=== PATIENT | male | born 1965 | race Caucasian/White ===

== ENCOUNTER 2017-02-01 13:23 | Emergency (ER) | payer BC ==
[2017-02-01] MEDS ORDERED: SUBLIMAZE 100 MCG/2 ML IV ONE (13:54)
[2017-02-01] MEDS ORDERED: Sodium Chloride 0.9% 1000 ML 1,000 ML IV STA (13:54)
[2017-02-01] MEDS ORDERED: Zofran 4 MG/2 ML VIAL IV ONE (13:54)
--- NOTE | 2017-02-01 14:00 | ERPHSYRPT ---
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 also reports pain to the left groin. states he has been having some pain to the left groin as well. Triage Nursing Assessment: pt is aox3, pupils perrl, resps are easy and nonlabored, radial pulses strong and equal, abd is soft, bowel sounds present and normoactivex4. pain to the LLQ with radiation to flank and back. urinary frequency and hesitancy. 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 also reports pain to the left groin. states he has been having some pain to the left groin as well. c/o urinary urgency and hesitancy Timing/Duration: today Activities at Onset: none Quality: throbbing Abdominal Pain Onset Location: LLQ Pain Radiation: flank, other (left groin) Severity of Pain-Max: severe Severity of Pain-Current: severe Modifying Factors: Improves With: nothing Allergies/Adverse Reactions: No Known Drug Allergies Allergy (Verified 02/01/17 13:38) Home Medications: Aspir 81 81 mg PO DAILY 02/13/12 [History] Glucophage DAILY 02/13/12 [History] Lisinopril DAILY 02/13/12 [History] Hx Tetanus, Diphtheria Vaccination/Date Given: Yes Hx Influenza Vaccination/Date Given: No Hx Pneumococcal Vaccination/Date Given: No Immunizations Up to Date: Yes - Review of Systems Constitutional: No Fever, No Chills Eyes: No Symptoms Ears, Nose, & Throat: No Symptoms Respiratory: No Cough, No Dyspnea Cardiac: No Chest Pain, No Edema, No Syncope Abdominal/Gastrointestinal: Abdominal Pain, No Nausea, No Vomiting, No Diarrhea Genitourinary Symptoms: Frequency, Hesitancy, Urgency, Flank Pain, No Dysuria, No Testicle Pain Musculoskeletal: No Back Pain, No Neck Pain Skin: No Rash Neurological: No Dizziness, No Focal Weakness, No Sensory Changes Psychological: No Symptoms Endocrine: No Symptoms All Other Systems: Reviewed and Negative - Past Medical History Pertinent Past Medical History: Yes Neurological History: No Pertinent History Cardiac History: Hypertension Respiratory History: No Pertinent History Endocrine Medical History: No Pertinent History, Diabetes Type II Musculoskeletal History: No Pertinent History Other Medical History: TYPE II DM (NIIDDM) - Past Surgical History Past Surgical History: Yes Gastrointestinal: Cholecystectomy - Social History Smoking Status: Never smoker Exposure to second hand smoke: No Drug Use: none Patient Lives Alone: No - Nursing Vital Signs Nursing Vital Signs: Initial Vital Signs Temperature 98.3 F 02/01/17 13:28 Pulse Rate 78 02/01/17 13:28 Respiratory Rate 18 02/01/17 13:28 Blood Pressure 158/114 02/01/17 13:28 O2 Sat by Pulse Oximetry 98 02/01/17 13:28 Pain Scale Pain Intensity 2 - Physical Exam General Appearance: no apparent distress, alert Eye Exam: PERRL/EOMI, eyes nml inspection Ears, Nose, Throat Exam: normal ENT inspection, pharynx normal, moist mucous membranes Neck Exam: normal inspection, non-tender, supple, full range of motion Respiratory Exam: normal breath sounds, lungs clear, No respiratory distress Cardiovascular Exam: regular rate/rhythm, normal heart sounds Gastrointestinal/Abdomen Exam: soft, normal bowel sounds, No tenderness, No distention, No mass, No guarding, No rebound Back Exam: normal inspection, normal range of motion, No CVA tenderness, No vertebral tenderness Extremity Exam: normal inspection, normal range of motion, pelvis stable Neurologic Exam: alert, oriented x 3, cooperative, normal mood/affect, nml cerebellar function, sensation nml, No motor deficits Skin Exam: normal color, warm, dry SpO2: 98 Oxygen Delivery: Room Air - Course Nursing assessment & vital signs reviewed: Yes - Radiology Ultrasound Exam Abdomen Ultrasound: Other (left ureteric pelvic stone, passed in to bladder while doing US. mild left hydronephrosis) Ordered Tests: Active Orders 24 hr Category Date Time Status UPPER ABDOMEN [US] Stat Exams 02/01/17 13:56 Ordered AMYLASE Stat Lab 02/01/17 13:54 Completed CBC W DIFF Stat Lab 02/01/17 13:54 Completed CMP Stat Lab 02/01/17 13:54 Completed LIPASE Stat Lab 02/01/17 13:54 Completed Lactic Acid Stat Lab 02/01/17 Ordered Medication Summary Discontinued Medications Generic Name Dose Route Start Last Admin Trade Name Freq PRN Reason Stop Dose Admin Fentanyl Citrate 50 mcg 02/01/17 13:54 02/01/17 14:08 Sublimaze 100 Mcg/2 Ml IV 02/01/17 13:55 50 mcg STAT ONE Administration Fentanyl Citrate Confirm 02/01/17 14:04 Sublimaze 100 Mcg/2 Ml Administered 02/01/17 14:05 Dose 100 mcg .ROUTE .STK-MED ONE Sodium Chloride 1,000 mls @ 999 mls/hr 02/01/17 13:54 02/01/17 14:08 Sodium Chloride 0.9% 1000 Ml IV 02/01/17 14:54 999 mls/hr .Q1H1M STA Administration Sodium Chloride Confirm 02/01/17 14:04 Sodium Chloride 0.9% 1000 Ml Administered 02/01/17 14:05 Dose 1,000 mls @ ud .ROUTE .STK-MED ONE Ondansetron HCl 4 mg 02/01/17 13:54 02/01/17 14:09 Zofran 4 Mg/2 Ml Vial IV 02/01/17 13:55 4 mg STAT ONE Administration Ondansetron HCl Confirm 02/01/17 14:03 Zofran 4 Mg/2 Ml Vial Administered 02/01/17 14:04 Dose 4 mg .ROUTE .STK-MED ONE Lab/Rad Data: Laboratory Result Diagrams 02/01/17 13:54 02/01/17 13:54 Laboratory Results 02/01/17 02/01/17 Range/Units 13:54 13:54 WBC 10.2 (4.0-10.5) K/mm3 RBC 5.66 H (4.1-5.6) M/mm3 Hgb 16.0 (12.5-18.0) gm/dl Hct 45.6 (42-50) % MCV 80.6 (78-100) fl MCH 28.2 (26-32) pg MCHC 35.1 (32-36) g/dl RDW 13.4 (11.5-14.0) % Plt Count 243 (150-450) K/mm3 MPV 10.4 H (6-9.5) fl Gran % 59.2 (36.0-66.0) % Lymphocytes % 28.2 (24.0-44.0) % Monocytes % 9.2 (0.0-12.0) % Eosinophils % 3.1 (0.00-5.0) % Basophils % 0.3 (0.0-0.4) % Basophils # 0.03 (0-0.4) Sodium 142 (136-145) mEq/L Potassium 4.0 (3.5-5.1) mEq/L Chloride 106 (98-107) mEq/L Carbon Dioxide 26.5 (21-32) mEq/L Anion Gap 13.5 (5-15) MEQ/L BUN 15 (9-20) mg/dL Creatinine 0.92 (0.55-1.30) mg/dl Estimated GFR > 60 ML/MIN Glucose 223 H (70-110) MG/DL Calcium 9.0 (8.5-10.1) mg/dL Total Bilirubin 1.00 (0.2-1.0) mg/dL AST 25 (15-37) U/L ALT 52 (12-78) U/L Alkaline Phosphatase 58 (46-116) U/L Serum Total Protein 7.2 (6.4-8.2) gm/dL Albumin 3.7 (3.4-5.0) g/dL Amylase 37 (25-115) U/L Lipase 79 (73-393) U/L - Progress Progress: improved, pain not gone completely Counseled pt/family regarding: lab results, diagnosis, need for follow-up, rad results - Departure Time of Disposition: 15:00 Departure Disposition: Home Clinical Impression: Renal colic on left side Type 2 diabetes mellitus Qualifiers: Diabetes mellitus complication status: without complication Diabetes mellitus care home insulin use: without medical office assistant instructor use Qualified Code(s): E11.9 - Type 2 diabetes mellitus without complications Condition: Stable Critical Care Time: Yes Critical Care Time(excluding separately billable procedures): 30-74 minutes Referrals: AUSTIN GRIFFITH [Primary Care Provider] - Instructions: Kidney Stones, Abdominal Pain-Adult Additional Instructions: ABDOMINAL PAIN 1. There are several different causes for abdominal pain, some of which may not be able to be identified on initial examination. 2. The important thing to remember is that bodily functions can change in a short period of time. If you notice any of the following symptoms, return to the emergency department or consult your doctor immediately: A. Worsening pain or no improvement in the next 12 hours. B. Increasing, severe abdominal pain C. Blood in stool D. Black stools E. Persistent vomiting F. Fever or chills or other symptoms Prescriptions: Ciprofloxacin [Cipro 500 MG] 500 mg PO BIDAC #20 tablet Cyclobenzaprine HCl 10 mg [Flexeril 10 MG] 10 mg PO TID #30 tablet
[2017-02-01] MEDS ORDERED: Zofran 4 MG/2 ML VIAL ONE (14:03)
[2017-02-01] MEDS ORDERED: Sodium Chloride 0.9% 1000 ML 1,000 ML ONE (14:04)
[2017-02-01] MEDS ORDERED: SUBLIMAZE 100 MCG/2 ML ONE (14:04)
[2017-02-01 14:05] LABS: BASOPHIL % 0.3 % (0.0-0.4); Eosinophil % 3.1 % (0.00-5.0); Granulocytes % 59.2 % (36.0-66.0); Lymphocytes % 28.2 % (24.0-44.0); Mean Cell Volume 80.6 fl (78-100); Mean Platelet Volume 10.4 fl (6-9.5); Monocytes % 9.2 % (0.0-12.0); Platelet Count 243 K/mm3 (150-450); Red Blood Count 5.66 M/mm3 (4.1-5.6); Red Cell Distribution Width 13.4 % (11.5-14.0); White Blood Count 10.2 K/mm3 (4.0-10.5)
[2017-02-01 14:06] LABS: Mean Corpuscular Hemoglobin 28.2 pg (26-32)
[2017-02-01 14:22] LABS: ALBUMIN 3.7 g/dL (3.4-5.0); ALKALINE PHOSPHATASE 58 U/L (46-116); ANION GAP 13.5 MEQ/L (5-15); BLOOD UREA NITROGEN 15 mg/dL (9-20); CHLORIDE 106 mEq/L (98-107); Carbon Dioxide 26.5 mEq/L (21-32); Glucose 223 MG/DL (70-110); LIPASE 79 U/L (73-393); SGOT/AST 25 U/L (15-37); SGPT/ALT 52 U/L (12-78); SODIUM 142 mEq/L (136-145); Total Protein 7.2 gm/dL (6.4-8.2)
[2017-02-01 14:39] VITALS: O2SAT 98
[2017-02-01 15:14] VITALS: BP 145/87; PULSE 91
--- NOTE | 2017-02-01 20:39 | XRAY ---
Indication: Left lower quadrant pain. Two-dimensional renal sonogram performed. Comparison: Gallbladder sonogram November 04, 2007. Both kidneys normal in reniform shape. Right kidney measures 11.6 x 5.9 x 5.1 cm and the left measures 12.2 x 6.6 x 5.5 cm. Left kidney is mildly hydronephrotic. No renal mass or perinephric fluid bilaterally. Cortical medullary differentiation preserved. Images of the urinary bladder unremarkable. Impression: Left renal hydronephrosis. Rule out distal obstructive uropathy. Negative right renal sonogram. Comment: Preliminary report was given.
== END 2017-02-01 15:15 | disposition home or self-care (01) ==
LOC: ED 13:23
DX: E11.9 Type 2 diabetes mellitus without complications (principal); N23 Unspecified renal colic; R10.32 Left lower quadrant pain; M54.9 Dorsalgia, unspecified; R39.15 Urgency of urination; R39.11 Hesitancy of micturition
CPT/HCPCS: 36000; 36415; 76770; 80053; 82150; 83036; 83690; 85025; 96360; 96374; 96375; 99284; J2405; J3010

== ENCOUNTER 2018-03-06 00:35 | Emergency (ER) | payer BC ==
[2018-03-06] MEDS ORDERED: Hydromorphone 1 mg/ml Ampule IV ONE (01:10)
[2018-03-06] MEDS ORDERED: Sodium Chloride 0.9% 1000 ML 1,000 ML IV STA (01:10)
[2018-03-06] MEDS ORDERED: TORAdol 30 mg Injection IV ONE (01:10)
[2018-03-06] MEDS ORDERED: Zofran 4 MG/2 ML VIAL IV ONE (01:10)
[2018-03-06] MEDS ORDERED: Zofran 4 MG/2 ML VIAL ONE (01:15)
[2018-03-06] MEDS ORDERED: Sodium Chloride 0.9% 1000 ML 1,000 ML ONE (01:15)
[2018-03-06] MEDS ORDERED: TORAdol 30 mg Injection ONE (01:15)
[2018-03-06] MEDS ORDERED: Hydromorphone 1 mg/ml Ampule ONE (01:15)
[2018-03-06 01:18] LABS: BASOPHIL % 0.5 % (0.0-0.4); Basophil (Absolute #) 0.05 (0-0.4); Eosinophil % 3.1 % (0.00-5.0); Granulocyte Absolute (ANC) 5.37 (1.4-6.9); Granulocytes % 55.5 % (36.0-66.0); Hematocrit 46.5 % (42-50); Hemoglobin 15.9 gm/dl (12.5-18.0); Lymphocyte (Absolute #) 2.85 (1.0-4.6); Lymphocytes % 29.5 % (24.0-44.0); Mean Cell Volume 82.9 fl (78-100); Mean Corpuscular Hemoglobin 28.3 pg (26-32); Mean Corpuscular Hgb Concent. 34.2 g/dl (32-36); Mean Platelet Volume 10.3 fl (6-9.5); Monocytes % 11.4 % (0.0-12.0); Platelet Count 228 K/mm3 (150-450); Red Blood Count 5.61 M/mm3 (4.1-5.6); Red Cell Distribution Width 13.4 % (11.5-14.0); White Blood Count 9.7 K/mm3 (4.0-10.5)
--- NOTE | 2018-03-06 01:18 | ERPHSYRPT ---
- History of Present Illness Time Seen by Provider: 03/06/18 00:55 Historian: patient Exam Limitations: clinical condition Patient Subjective Stated Complaint: pt is alert and oriented. pt is ambulatory. pt comes in with c/o left sided abdomenal and flank pain. pt states that he had a "kidney stone in his right side over a year ago" and that the pain "feels like that except on the left." pt denies n/v/d. pt states hes had mild burning during urination. denies blood in his urine or difficulty urinating. Triage Nursing Assessment: see above Physician History: PATIENT WITH A HISTORY OF LEFT FLANK PAINS INTERMITTENT X 2 DAYS, RADIATING AROUND TO RIGHT LOWER ABDOMEN. HAS ASSOCIATED URGENCY OF URINATION. DENIES FREQUENCY, DYSURIA, HEMATURIA, NAUSEA, EMESIS OR DIARRHEA OR FEVER. Timing/Duration: day(s) Activities at Onset: none Quality: sharpness, stabbing Abdominal Pain Onset Location: LLQ, flank Pain Radiation: LLQ Severity of Pain-Max: severe Severity of Pain-Current: moderate Modifying Factors: Improves With: nothing Associated Symptoms: other (URGENCY ) Previous symptoms: same symptoms as today Allergies/Adverse Reactions: No Known Drug Allergies Allergy (Verified 02/01/17 13:38) Home Medications: Aspir 81 81 mg PO DAILY 02/13/12 [History] Lisinopril 20 mg [Zestril 20 MG] 1 tab PO BID 03/06/18 [History] Metformin HCl 500 mg [Glucophage 500 MG] 1,000 mg PO BIDWM 03/06/18 [ History] Naproxen Sodium 220 mg [Aleve 220 MG] 440 mg PO BID 03/06/18 [History] hydroCHLOROthiazide [Hydrochlorothiazide] 12.5 mg PO DAILY 03/06/18 [History] Hx Tetanus, Diphtheria Vaccination/Date Given: Yes Hx Influenza Vaccination/Date Given: No Hx Pneumococcal Vaccination/Date Given: No Immunizations Up to Date: Yes - Review of Systems Constitutional: No Fever, No Chills Eyes: No Symptoms Ears, Nose, & Throat: No Symptoms Respiratory: No Symptoms, No Cough, No Dyspnea Cardiac: No Symptoms, No Chest Pain, No Edema, No Syncope Abdominal/Gastrointestinal: Abdominal Pain, No Nausea, No Vomiting, No Diarrhea Genitourinary Symptoms: Urgency, Flank Pain, No Dysuria Musculoskeletal: No Back Pain, No Neck Pain Skin: No Rash Neurological: No Dizziness, No Focal Weakness, No Sensory Changes Psychological: No Symptoms Endocrine: No Symptoms All Other Systems: Reviewed and Negative - Past Medical History Pertinent Past Medical History: Yes Neurological History: No Pertinent History ENT History: No Pertinent History Cardiac History: Hypertension Respiratory History: No Pertinent History Endocrine Medical History: No Pertinent History, Diabetes Type II Musculoskeletal History: No Pertinent History GI Medical History: No Pertinent History History: Other Male Reproductive Disorders: No Pertinent History Other Medical History: Kidney stone, TYPE II DM (NIIDDM) - Past Surgical History Past Surgical History: Yes Neuro Surgical History: No Pertinent History Cardiac: No Pertinent History Respiratory: No Pertinent History Gastrointestinal: Cholecystectomy Genitourinary: No Pertinent History Musculoskeletal: No Pertinent History Male Surgical History: No Pertinent History - Social History Smoking Status: Never smoker Exposure to second hand smoke: No Drug Use: none Patient Lives Alone: No - Nursing Vital Signs Nursing Vital Signs: Initial Vital Signs Temperature 97.6 F 03/06/18 00:37 Pulse Rate 74 03/06/18 00:37 Respiratory Rate 20 03/06/18 00:37 Blood Pressure 177/107 03/06/18 00:37 O2 Sat by Pulse Oximetry 98 03/06/18 00:37 Pain Scale Pain Intensity 2 - Physical Exam General Appearance: moderate distress, alert Eye Exam: PERRL/EOMI, eyes nml inspection Ears, Nose, Throat Exam: normal ENT inspection, pharynx normal, moist mucous membranes Neck Exam: normal inspection, non-tender, supple, full range of motion Respiratory Exam: normal breath sounds, lungs clear, No respiratory distress Cardiovascular Exam: regular rate/rhythm, normal heart sounds Gastrointestinal/Abdomen Exam: soft, normal bowel sounds, other (LEFT LATERAL ABDOMINAL TENDERNESS. ), No tenderness, No mass Back Exam: normal inspection, normal range of motion, CVA tenderness (LEFT CVA TENDERNESS), No vertebral tenderness Extremity Exam: normal inspection, normal range of motion, pelvis stable Neurologic Exam: alert, oriented x 3, cooperative, normal mood/affect, nml cerebellar function, sensation nml, No motor deficits Skin Exam: normal color, warm, dry SpO2: 98 Oxygen Delivery: Room Air - CT Exams Abdomen/Pelvis CT Interpretation: Tele-radiologist Report (THERE IS A 5MM CALCULUS AT THE LEFT DISTAL URETER CLOSE TO THE URETEROVESICAL JUNCTION CAUSING MILD LEFT HYURETERONEPHROSIS AND PERINEPHRIC STRANDING) Ordered Tests: Active Orders 24 hr Category Date Time Status Clean Catch Urine Specimen STAT Care 03/06/18 01:10 Active IV Insertion STAT Care 03/06/18 01:10 Active ABDOMEN AND PELVIS W/0 CONTRAS [CT] Stat Exams 03/06/18 01:10 Taken AMYLASE Stat Lab 03/06/18 01:00 Completed BMP Stat Lab 03/06/18 01:00 Completed CBC W DIFF Stat Lab 03/06/18 01:00 Completed LIPASE Stat Lab 03/06/18 01:00 Completed UA W/RFX UR CULTURE Stat Lab 03/06/18 01:00 Completed Medication Summary Discontinued Medications Generic Name Dose Route Start Last Admin Trade Name Freq PRN Reason Stop Dose Admin Hydromorphone HCl 1 mg 03/06/18 01:10 03/06/18 01:21 Hydromorphone 1 Mg/Ml Ampule IV 03/06/18 01:11 1 mg STAT ONE Administration Hydromorphone HCl Confirm 03/06/18 01:15 Hydromorphone 1 Mg/Ml Ampule Administered 03/06/18 01:16 Dose 1 mg .ROUTE .STK-MED ONE Sodium Chloride 1,000 mls @ 999 mls/hr 03/06/18 01:10 03/06/18 01:26 Sodium Chloride 0.9% 1000 Ml IV 03/06/18 02:10 999 mls/hr .Q1H1M STA Administration Sodium Chloride Confirm 03/06/18 01:15 Sodium Chloride 0.9% 1000 Ml Administered 03/06/18 01:16 Dose 1,000 mls @ ud .ROUTE .STK-MED ONE Ketorolac Tromethamine 30 mg 03/06/18 01:10 03/06/18 01:24 Toradol 30 Mg Injection IV 03/06/18 01:11 30 mg STAT ONE Administration Ketorolac Tromethamine Confirm 03/06/18 01:15 Toradol 30 Mg Injection Administered 03/06/18 01:16 Dose 30 mg .ROUTE .STK-MED ONE Ondansetron HCl 4 mg 03/06/18 01:10 03/06/18 01:18 Zofran 4 Mg/2 Ml Vial IV 03/06/18 01:11 4 mg STAT ONE Administration Ondansetron HCl Confirm 03/06/18 01:15 Zofran 4 Mg/2 Ml Vial Administered 03/06/18 01:16 Dose 4 mg .ROUTE .STK-MED ONE Lab/Rad Data: Laboratory Result Diagrams 03/06/18 01:00 03/06/18 01:00 Laboratory Results 03/06/18 03/06/18 03/06/18 Range/Units 01:00 01:00 01:00 WBC 9.7 (4.0-10.5) K/mm3 RBC 5.61 H (4.1-5.6) M/mm3 Hgb 15.9 (12.5-18.0) gm/dl Hct 46.5 (42-50) % MCV 82.9 (78-100) fl MCH 28.3 (26-32) pg MCHC 34.2 (32-36) g/dl RDW 13.4 (11.5-14.0) % Plt Count 228 (150-450) K/mm3 MPV 10.3 H (6-9.5) fl Gran % 55.5 (36.0-66.0) % Eos # (Auto) 0.30 (0-0.5) Absolute Lymphs (auto) 2.85 (1.0-4.6) Absolute Monos (auto) 1.10 (0.0-1.3) Lymphocytes % 29.5 (24.0-44.0) % Monocytes % 11.4 (0.0-12.0) % Eosinophils % 3.1 (0.00-5.0) % Basophils % 0.5 (0.0-0.4) % Absolute Granulocytes 5.37 (1.4-6.9) Basophils # 0.05 (0-0.4) Sodium 139 (137-145) mmol/L Potassium 4.3 (3.5-5.1) mmol/L Chloride 103 (98-107) mmol/L Carbon Dioxide 27 (22-30) mmol/L Anion Gap 12.7 (5-15) MEQ/L BUN 20 (9-20) mg/dL Creatinine 0.71 (0.66-1.25) mg/dL Estimated GFR > 60.0 ML/MIN Glucose 236 H (74-106) mg/dL Calcium 9.4 (8.4-10.2) mg/dL Amylase 57 (30-110) U/L Lipase 77 (23-300) U/L Urine Color YELLOW (YELLOW) Urine Appearance CLEAR (CLEAR) Urine pH 6.0 (5-6) Ur Specific Calder 1.020 (1.005-1.025) Urine Protein NEGATIVE (Negative) Urine Ketones NEGATIVE (NEGATIVE) Urine Blood NEGATIVE (0-5) Guerrero/ul Urine Nitrite NEGATIVE (NEGATIVE) Urine Bilirubin NEGATIVE (NEGATIVE) Urine Urobilinogen 2 (0-1) mg/dL Ur Leukocyte Esterase NEGATIVE (NEGATIVE) Urine WBC (Auto) 0-2 (0-5) /HPF Urine RBC (Auto) 6-10 (0-2) /HPF U Epithel Cells (Auto) NONE SEEN (FEW) /HPF Urine Mucus (Auto) SLIGHT (NEGATIVE) /HPF Urine Culture Reflexed NO (NO) Urine Glucose 150 (NEGATIVE) mg/dL - Progress Progress: improved, pain not gone completely Progress Note: 03/06/18 03:09 IV NORMAL SALINE 1 LITER/HR. ZOFRAN 4MG, TORADOL 30MG, DILAUDID 1MG IV Counseled pt/family regarding: diagnosis - Departure Time of Disposition: 04:16 Departure Disposition: Home Clinical Impression: LEFT DISTAL URETER STONE Condition: Stable Critical Care Time: No Referrals: NORY RUVALCABA [Primary Care Provider] - Instructions: Kidney Stones in Adults Additional Instructions: USE A STRAINER TO STRAIN YOUR URINE FOR 4 DAYS. FLOMAX 0.4MG AT BEDTIME FOR 1 WEEK. NORCO 10/325 EVERY 4 HOURS FOR PAIN NEEDED. TORADOL 10MG EVERY 6 HOURS NEEDED FOR PAIN. ZOFRAN 4MG EVERY 6 HOURS NEEDED FOR NAUSEA. CALL UROLOGIST DR ROSS IN 2 DAYS TO SCHEDULE APPOINTMENT. RETURN TO EMERGENCY FOR INCREASING PAIN DISCOMFORT. Prescriptions: Hydrocodone/APAP 10/325 mg [[place] 10/325 MG Tablet] 1 tab PO Q4H PRN PRN # 16 tablet MDD 4 PRN Reason: Pain Ketorolac Tromethamine [Toradol] 10 mg PO Q6H PRN PRN #20 tablet PRN Reason: Pain Ondansetron ODT 4 MG [Zofran Odt 4 mg] 4 mg PO Q6H PRN PRN #10 tab.rapdis PRN Reason: Nausea Tamsulosin HCl 0.4 mg [Flomax 0.4 MG] 0 mg PO DAILY #10 cap
[2018-03-06 01:26] LABS: AMYLASE 57 U/L (30-110); ANION GAP 12.7 MEQ/L (5-15); Appearance CLEAR (CLEAR); BLOOD UREA NITROGEN 20 mg/dL (9-20); Bilirubin NEGATIVE (NEGATIVE); Blood NEGATIVE Ery/ul (0-5); CHLORIDE 103 mmol/L (98-107); Calcium 9.4 mg/dL (8.4-10.2); Carbon Dioxide 27 mmol/L (22-30); Creatinine 1 0.71 mg/dL (0.66-1.25); Glucose 150 mg/dL (NEGATIVE); Glucose 236 mg/dL (74-106); Ketones NEGATIVE (NEGATIVE); LIPASE 77 U/L (23-300); Leukocyte Esterase NEGATIVE (NEGATIVE); Nitrite NEGATIVE (NEGATIVE); Potassium 4.3 mmol/L (3.5-5.1); Protein,Urine Dip NEGATIVE (Negative); SODIUM 139 mmol/L (137-145); Urobilinogen 2 mg/dL (0-1)
[2018-03-06] MEDS ORDERED: Norco 10/325 MG Tablet PO ONE (04:16)
[2018-03-06] MEDS ORDERED: Norco 10/325 MG Tablet ONE (04:19)
[2018-03-06 04:39] VITALS: BP 151/90; PULSE 71; O2SAT 97
--- NOTE | 2018-03-06 08:51 | XRAY ---
Indication: Left flank pain. Multiple contiguous axial images obtained through the abdomen and pelvis without contrast as ordered. Comparison: No Lung bases demonstrates minimal left base fibrosis/scarring. No infiltrate or effusion. Heart is not enlarged. Noncontrasted stomach and bowel loops appear nonobstructed. Normal appendix. Previous cholecystectomy. There is a 5 mm distal left ureteral calculus just proximal to the UVJ. Left ureter is prominent up to 8 mm and there is moderate hydronephrosis with small perinephric fluid/stranding consistent with high-grade obstruction. Additional 12 mm left lower renal calculus and a few nonobstructing punctate right renal calculi. Remaining liver, pancreas, spleen, adrenal glands, kidneys, ureters, and bladder appear unremarkable for noncontrast exam. Minimal aortoiliac calcifications without AAA. Osseous structures intact with mild/moderate multilevel degenerative spondylosis. Small fatty bilateral inguinal hernias. Impression: 1. 5 mm distal left ureteral calculus producing high-grade obstruction as detailed. Additional bilateral renal calculi. 2. Incidental small fatty bilateral inguinal hernias. Comment: Preliminary interpretation was made by [facility]. No discrepancy. CTDI 23.68
== END 2018-03-06 04:39 | disposition home or self-care (01) ==
LOC: ED 00:35
DX: R10.9 Unspecified abdominal pain (principal); R10.32 Left lower quadrant pain; R39.15 Urgency of urination; Z79.899 Other long term (current) drug therapy; E11.9 Type 2 diabetes mellitus without complications
CPT/HCPCS: 36000; 36415; 74176; 80048; 81001; 82150; 83690; 85025; 96360; 96374; 96375; 99284; J1170; J1885; J2405; A9270-GY

== ENCOUNTER 2023-12-02 16:06 | Day surgery (SDC) | payer BC ==
[2012-02-13 22:51] VITALS: BP 148/86
[2023-12-02] MEDS ORDERED: BUPIVACAINE 0.5% VIAL IJ ONE (16:07)
[2023-12-02] MEDS ORDERED: LIDOCAINE HCL 1% 50 MG/5 ML VL PF IJ ONE (16:07)
[2023-12-02] MEDS ORDERED: Depo-Medrol 40 MG/ML IM ONE (16:07)
--- NOTE | 2023-12-02 18:14 | XRAY ---
Indication: Right shoulder and subacromial bursa injection. Intraoperative fluoroscopy provided for 23 seconds. 2 digital spot images submitted for interpretation demonstrates needle tip projecting over the right glenohumeral joint superiorly. Second needle tip subacromial. Small amount of contrast injected for needle tip placement. Correlate with intraoperative findings/report.
--- NOTE | 2023-12-03 13:12 | XRAY ---
23 seconds of fluoroscopy was used in surgery for a right intra-articular shoulder and subacromial bursa injection.
== END 2023-12-02 17:55 | disposition home or self-care (01) ==
LOC: SDC-PAIN 16:06
PROVIDERS: ATTEND Psychiatry & Neurology Pain Medicine
DX: M19.011 Primary osteoarthritis, right shoulder (principal)
CPT/HCPCS: 20610; 73030; 77002; J2001; Q9966